=== PATIENT | male | born 1950 | race Two or more races ===

== ENCOUNTER 2022-06-18 18:42 | Emergency (ER) | payer OTHER ==
[~2022-06-18] VITALS: Ht 172.7 cm; Wt 80.7 kg
[2022-06-18] MEDS ORDERED: AMLODIPINE BESYL5 MG PO (19:16)
[2022-06-18] MEDS ORDERED: METOPROLOL SUCC50 MG PO (19:16)
[2022-06-18] MEDS ORDERED: MEMANTINE HCL10 MG PO (19:16)
[2022-06-18] MEDS ORDERED: LEVOTHYROXINE50 MCG PO (19:16)
[2022-06-18] MEDS ORDERED: TAMSULOSIN HCL0.4 MG PO (19:16)
[2022-06-18] MEDS ORDERED: CLOPIDOGREL BIS75 MG PO (19:17)
[2022-06-18] MEDS ORDERED: CLONIDINE HCL0.1 MG PO (19:17)
[2022-06-18] MEDS ORDERED: ATORVASTATIN CA20 MG PO (19:17)
[2022-06-18] MEDS ORDERED: LOSARTAN POTAS100 MG PO (19:17)
[2022-06-18] MEDS ORDERED: FUROSEMIDE40 MG PO (19:17)
== END 2022-06-19 01:42 | disposition home or self-care (01) ==
LOC: ER 18:42
DX: R00.2 Palpitations (principal); E78.00 Pure hypercholesterolemia, unspecified; E03.9 Hypothyroidism, unspecified; I10 Essential (primary) hypertension; N39.0 Urinary tract infection, site not specified; Z20.822 Contact with and (suspected) exposure to COVID-19

== ENCOUNTER 2024-01-15 05:15 | Inpatient (IN) | payer OTHER ==
[2024-01-08 09:35] LABS: HEMATOCRIT 43.4 % (39.0-48.0); HEMOGLOBIN 14.9 g/dL (13-16.00); MEAN CELL VOLUME 89.7 fL (80.0-100.00); MEAN CORPUSCULAR HEMOGLOBIN 30.7 pg (27.00-32.0); MEAN CORPUSCULAR HGB CONC 34.2 g/dl (32.0-36.0); PLATELET COUNT 263 K/uL (150-450); RED BLOOD COUNT 4.84 M/uL (4.00-6.00)
[2024-01-08 09:41] LABS: URINE APPEARANCE Clear; URINE BILIRRUBIN Negative (NEGATIVE); URINE BLOOD Negative; URINE COLOR Yellow; URINE GLUCOSE Negative (NEGATIVE); URINE LEUKOCYTE Negative; URINE NITRATE Negative; URINE PROTEIN Negative (NEGATIVE); URINE UROBILINOGEN 0.2 E.U./dl
[2024-01-08 09:42] LABS: URINE BACTERIA 7.5 uL (0.0-1933); URINE EPITHELIAL CELLS 4.7 uL (0.0-38.8); URINE RBC 3.9 uL (0.0-20.8); URINE WBC 3.8 uL (0.0-23.2)
[2024-01-08 10:33] LABS: INR 0.96; PARTIAL THROMBOPLASTIN TIME 27.5 SECONDS (22.0-34.0); PROTHROMBIN TIME 10.1 SECONDS (9.0-11.5)
[2024-01-08 10:38] LABS: BILIRUBIN TOTAL 0.67 mg/dL (0.3-1.2); CALCIUM 9.6 mg/dL (8.5-10.1); CREATININE SERUM 0.97 mg/dL (0.70-1.30); GFR 75.66; GLOBULINA 3.3 G/DL (2.4-3.5); POTASSIUM 4.17 mEq/L (3.5-5.1); TOTAL PROTEIN 7.3 gm/dL (6.4-8.2)
[~2024-01-15] VITALS: Ht 172.7 cm; Wt 93.0 kg
[~2024-01-15 05:15] MED LIST: AMLODIPINE BESYL5 MG PO; ATORVASTATIN CA20 MG PO; AVAPRO150 MG PO; CARDIZEM60 MG PO; CATAPRES0.3 MG PO; CLONIDINE HCL0.1 MG PO; CLOPIDOGREL BIS75 MG PO; FUROSEMIDE40 MG PO; LEVOTHYROXINE50 MCG PO; LOSARTAN POTAS100 MG PO; MEMANTINE HCL10 MG PO; METOPROLOL SUCC50 MG PO; TAMSULOSIN HCL0.4 MG PO
[2024-01-15] MEDS ORDERED: DEXAMETHASONE SODIUM PHOSPHATE 4 MG/ML VIAL ONE (07:47)
[2024-01-15] MEDS ORDERED: DEXAMETHASONE SODIUM PHOSPHATE 4 MG/ML VIAL IV ONE (08:30)
[2024-01-15] MEDS ORDERED: ONDANSETRON HCL 2 MG/ML VIAL IV PRN (11:00)
[2024-01-15] MEDS ORDERED: ENALAPRILAT DIHYDRATE 1.25 MG/ML VIAL IV PRN (11:00)
[2024-01-15] MEDS ORDERED: TRAMADOL HCL 50 MG TABLET PO PRN (14:30)
[2024-01-15] MEDS ORDERED: ENALAPRILAT DIHYDRATE 1.25 MG/ML VIAL IV ONE ×2 (15:16→15:52)
[2024-01-15] MEDS ORDERED: ACETAMINOPHEN 500 MG GEL..CAP PO SCH (17:00)
[2024-01-15] MEDS ORDERED: CYCLOBENZAPRINE HCL 5 MG TABLET PO SCH (17:00)
[2024-01-15] MEDS ORDERED: DILTIAZEM HCL 60 MG TABLET PO SCH (17:00)
[2024-01-15] MEDS ORDERED: ACETAMINOPHEN 500 MG GEL..CAP PO ONE (17:05)
[2024-01-15] MEDS ORDERED: PANTOPRAZOLE SODIUM 40 MG/VIAL VIAL IV PUSH SCH (21:00)
[2024-01-15] MEDS ORDERED: CLONIDINE HCL 0.1 MG TABLET PO ONE (23:30)
[2024-01-16] MEDS ORDERED: CLONIDINE HCL 0.1 MG TABLET PO ONE (00:32)
[2024-01-16] MEDS ORDERED: ATORVASTATIN CALCIUM 20 MG TABLET PO SCH (09:00)
[2024-01-16] MEDS ORDERED: MEMANTINE HCL 10 MG TABLET PO SCH (09:00)
[2024-01-16] MEDS ORDERED: FUROsemide 40 MG TABLET PO SCH (09:00)
[2024-01-16] MEDS ORDERED: CLONIDINE HCL 0.1 MG TABLET PO SCH ×2 (09:00)
[2024-01-16] MEDS ORDERED: TAMSULOSIN HCL 0.4 MG CAP PO SCH (09:00)
[2024-01-16] MEDS ORDERED: IRBESARTAN 150 MG TABLET PO SCH (09:00)
[2024-01-16] MEDS ORDERED: METOPROLOL SUCCINATE 50 MG TAB.SR.24H PO SCH (09:00)
[2024-01-16] MEDS ORDERED: LEVOTHYROXINE SODIUM 50 MCG TABLET PO SCH (09:00)
[2024-01-16] MEDS ORDERED: FAMOTIDINE40 MG (10:28)
[2024-01-16] MEDS ORDERED: AMLODIPINE BESYL5 MG (10:28)
[2024-01-16] MEDS ORDERED: FLONASE16 GM (10:28)
[2024-01-16] MEDS ORDERED: TADALAFIL10 MG (10:28)
[2024-01-16] MEDS ORDERED: PANTOPRAZOLE SO40 MG (10:29)
== END 2024-01-16 14:14 | disposition home or self-care (01) | DRG 627 ==
LOC: CIR.AMB 05:15 → EDSTATUS 08:45 → SURH 08:45 → SURG 15:20
PROVIDERS: ADMIT Surgery; ATTEND Surgery
PROC: 0GBM0ZZ Excision of Left Superior Parathyroid Gland, Open Approach (ICD-10-PCS; principal; 2024-01-15 07:00)
DX: D35.1 Benign neoplasm of parathyroid gland (principal); Z20.822 Contact with and (suspected) exposure to COVID-19

== ENCOUNTER 2024-02-02 18:02 | Inpatient (IN) | payer OTHER ==
[~2024-02-02] VITALS: Ht 172.7 cm; Wt 93.0 kg
[~2024-02-02 18:02] MED LIST changes: +AMLODIPINE BESYL5 MG; +FAMOTIDINE40 MG; +FLONASE16 GM; +PANTOPRAZOLE SO40 MG; +TADALAFIL10 MG
--- NOTE | 2024-02-02 18:21 | NUR ---
PACIENTE ALERTA Y ORIENTADO X3, REFIERE VENIR DE PARTE DE LA DRA. DILL (ENDOCRINOLOGA) DEBIDO A QUE PRESENTA CERATININA 14.92 Y BUN 97.0. SE ARACELY BP MANUAL 180/100 MMHG. SE REALIZA EKG Y SE UBICA
--- NOTE | 2024-02-02 18:40 | NUR ---
SE ORIENTA A PACIENTE SOBRE [place] MEDICO, REFIERE ENTENDER. SE REALIZAN MUESTRAS DE LABORATORIO BAJO MEDIDAS ASEPTICAS. SE COORDINA SONOGRAMA. PACIENTE MANEJADO POR . PENDIENTE RE-EVALUACION MEDICA.
[2024-02-02 18:58] LABS: HEMATOCRIT 39.8 % (39.0-48.0); HEMOGLOBIN 13.7 g/dL (13-16.00); MEAN CELL VOLUME 91.6 fL (80.0-100.00); MEAN CORPUSCULAR HEMOGLOBIN 31.6 pg (27.00-32.0); MEAN CORPUSCULAR HGB CONC 34.5 g/dl (32.0-36.0); PLATELET COUNT 320 K/uL (150-450); RED BLOOD COUNT 4.35 M/uL (4.00-6.00); RED CELL DISTRIBUTION WIDTH 13.8 % (11.5-14.5)
[2024-02-02 20:08] LABS: ALBUMIN 3.8 gm/dL (3.4-5.0); BILIRUBIN TOTAL 0.56 mg/dL (0.3-1.2); GLOBULINA 3.9 G/DL (2.4-3.5); TOTAL PROTEIN 7.7 gm/dL (6.4-8.2)
[2024-02-02 20:12] LABS: GFR 2.22
[2024-02-02 20:17] LABS: CREATININE SERUM 20.6 mg/dL (0.70-1.30); PHOSPHOROUS 8.9 mg/dL (2.5-4.9); POTASSIUM 6.23 mEq/L (3.5-5.1)
[2024-02-02] MEDS ORDERED: CALCIUM GLUCONATE 100 MG/ML VIAL ONE (20:40)
[2024-02-02] MEDS ORDERED: CALCIUM GLUCONATE 100 MG/ML VIAL IV ONE (20:45)
[2024-02-02] MEDS ORDERED: CITRIC ACID/SODIUM CITRATE 30 ML BLIST.PACK PO SCH (21:25)
[2024-02-02] MEDS ORDERED: Calcium Acetate 667 MG CAP PO SCH (21:26)
[2024-02-02] MEDS ORDERED: CLONAZEPAM 1 MG TABLET PO SCH (21:26)
[2024-02-02] MEDS ORDERED: FINASTERIDE 5 MG TABLET PO SCH (21:27)
[2024-02-02] MEDS ORDERED: DILTIAZEM HCL 60 MG TABLET PO SCH (21:27)
[2024-02-02] MEDS ORDERED: hydrALAZINE HCL 20 MG VIAL IV PRN (21:30)
[2024-02-02] MEDS ORDERED: 0.9 % SODIUM CHLORIDE 1,000 ML IV SCH (21:30)
[2024-02-02] MEDS ORDERED: CLONIDINE HCL 0.1 MG TABLET PO SCH (21:36)
[2024-02-02 21:56] LABS: ABG PH 7.392 (7.35-7.45); ABG PO2 94.3 mmHg (80-100); ABG pCO2 31.3 mmHg (35-45); BASE EXCESS -5.1 mmol/l; BICARBONATE 18.6 mmol/l (23-25); SaO2 97.1 %; Tco2 19.6 mmol/l
[2024-02-02] MEDS ORDERED: SODIUM POLYSTYRENE SULFONATE 30G/8 TSP PO SCH (22:00)
[2024-02-02] MEDS ORDERED: DILTIAZEM HCL 30 MG TABLET PO ONE (22:03)
[2024-02-02] MEDS ORDERED: CLONIDINE HCL 0.1 MG TABLET PO ONE (22:03)
[2024-02-02] MEDS ORDERED: CITRIC ACID/SODIUM CITRATE 30 ML BLIST.PACK PO ONE (22:03)
[2024-02-02 22:43] LABS: allen test SATISFACTORY; o2 21 %; puncture site RADIAL LEFT
[2024-02-02 23:10] LABS: URINE APPEARANCE Clear; URINE BILIRRUBIN Negative (NEGATIVE); URINE BLOOD Negative; URINE COLOR Yellow; URINE GLUCOSE Negative (NEGATIVE); URINE KETONE Negative (NEGATIVE); URINE LEUKOCYTE Trace; URINE NITRATE Negative; URINE PROTEIN Negative (NEGATIVE); URINE UROBILINOGEN 0.2 E.U./dl
[2024-02-02 23:15] LABS: URINE BACTERIA 59.1 uL (0.0-1933); URINE EPITHELIAL CELLS 8.7 uL (0.0-38.8); URINE RBC 6.2 uL (0.0-20.8); URINE WBC 6.3 uL (0.0-23.2)
[2024-02-03] MEDS ORDERED: CLONIDINE HCL 0.1 MG TABLET PO ONE (05:47)
[2024-02-03] MEDS ORDERED: LEVOTHYROXINE SODIUM 50 MCG TABLET PO SCH (06:00)
[2024-02-03 06:27] LABS: HEMATOCRIT 44.8 % (39.0-48.0); HEMOGLOBIN 15.3 g/dL (13-16.00); MEAN CELL VOLUME 91.2 fL (80.0-100.00); MEAN CORPUSCULAR HEMOGLOBIN 31.2 pg (27.00-32.0); MEAN CORPUSCULAR HGB CONC 34.2 g/dl (32.0-36.0); PLATELET COUNT 326 K/uL (150-450); RED BLOOD COUNT 4.91 M/uL (4.00-6.00)
[2024-02-03] MEDS ORDERED: 0.9 % SODIUM CHLORIDE 1,000 ML IV SCH (07:00)
[2024-02-03 07:04] LABS: INR 1.14; PARTIAL THROMBOPLASTIN TIME 29.1 SECONDS (22.0-34.0); PROTHROMBIN TIME 11.9 SECONDS (9.0-11.5)
[2024-02-03 07:15] LABS: ALBUMIN 4.1 gm/dL (3.4-5.0); BILIRUBIN TOTAL 0.72 mg/dL (0.3-1.2); CALCIUM 9.8 mg/dL (8.5-10.1); GFR 7.17; GLOBULINA 4.7 G/DL (2.4-3.5); POTASSIUM 3.9 mEq/L (3.5-5.1); TOTAL PROTEIN 8.8 gm/dL (6.4-8.2)
[2024-02-03] MEDS ORDERED: PANTOPRAZOLE SODIUM 40 MG TABLET.DR PO SCH (07:30)
[2024-02-03 07:54] LABS: CREATININE SERUM 7.47 mg/dL (0.70-1.30)
[2024-02-03] MEDS ORDERED: AMLODIPINE BESYLATE 5 MG TABLET PO SCH (09:00)
[2024-02-03] MEDS ORDERED: TAMSULOSIN HCL 0.4 MG CAP PO SCH (09:00)
[2024-02-03] MEDS ORDERED: METOPROLOL SUCCINATE 50 MG TAB.SR.24H PO SCH (09:00)
[2024-02-03] MEDS ORDERED: SODIUM CHLORIDE 0.45 % 1,000 ML IV SCH (09:00)
[2024-02-04 07:26] LABS: ALBUMIN 3.8 gm/dL (3.4-5.0); BILIRUBIN TOTAL 0.83 mg/dL (0.3-1.2); CALCIUM 9.5 mg/dL (8.5-10.1); CREATININE SERUM 1.18 mg/dL (0.70-1.30); GFR 60.34; POTASSIUM 3.56 mEq/L (3.5-5.1); PROSTATIC SPECIFIC ANTIGEN 2.55 NG/ML (0.010-4.00); TOTAL PROTEIN 7.8 gm/dL (6.4-8.2)
[2024-02-04 07:29] LABS: HEMATOCRIT 41.3 % (39.0-48.0); HEMOGLOBIN 13.9 g/dL (13-16.00); MEAN CELL VOLUME 90.7 fL (80.0-100.00); MEAN CORPUSCULAR HEMOGLOBIN 30.6 pg (27.00-32.0); MEAN CORPUSCULAR HGB CONC 33.7 g/dl (32.0-36.0); PLATELET COUNT 289 K/uL (150-450); RED BLOOD COUNT 4.55 M/uL (4.00-6.00); RED CELL DISTRIBUTION WIDTH 13.7 % (11.5-14.5)
[2024-02-04] MEDS ORDERED: hydrALAZINE HCL 25 MG TABLET PO SCH (09:23)
[2024-02-05 06:22] LABS: HEMATOCRIT 39.6 % (39.0-48.0); HEMOGLOBIN 13.6 g/dL (13-16.00); MEAN CELL VOLUME 89.8 fL (80.0-100.00); MEAN CORPUSCULAR HEMOGLOBIN 30.9 pg (27.00-32.0); MEAN CORPUSCULAR HGB CONC 34.4 g/dl (32.0-36.0); PLATELET COUNT 262 K/uL (150-450); RED BLOOD COUNT 4.41 M/uL (4.00-6.00); RED CELL DISTRIBUTION WIDTH 13.7 % (11.5-14.5)
[2024-02-05 06:43] LABS: ALBUMIN 3.5 gm/dL (3.4-5.0); BILIRUBIN TOTAL 0.74 mg/dL (0.3-1.2); CALCIUM 9.3 mg/dL (8.5-10.1); CREATININE SERUM 0.92 mg/dL (0.70-1.30); GFR 80.42; GLOBULINA 3.4 G/DL (2.4-3.5); MAGNESIUM 1.7 mg/dL (1.8-2.4); POTASSIUM 3.52 mEq/L (3.5-5.1); TOTAL PROTEIN 6.9 gm/dL (6.4-8.2)
[2024-02-05] MEDS ORDERED: Calcium Acetate 667 MG CAP PO SCH (09:10)
[2024-02-05] MEDS ORDERED: METOPROLOL TARTRATE 50 MG TABLET PO SCH (17:00)
[2024-02-05] MEDS ORDERED: hydrALAZINE HCL 50 MG TABLET PO SCH (17:00)
[2024-02-06 07:13] LABS: CALCIUM 9.1 mg/dL (8.5-10.1); CREATININE SERUM 1.03 mg/dL (0.70-1.30); GFR 70.59; POTASSIUM 3.1 mEq/L (3.5-5.1)
[2024-02-06] MEDS ORDERED: MAGNESIUM SULFATE IN WATER 2 GM/50 ML PIGGYBAG IV NR (08:54)
[2024-02-06] MEDS ORDERED: IRBESARTAN 150 MG TABLET PO SCH (09:00)
[2024-02-06] MEDS ORDERED: APIXABAN 5 MG TABLET PO SCH (09:00)
[2024-02-06] MEDS ORDERED: POTASSIUM BICARBONATE/CIT AC 25 MEQ TABLET.EFF PO SCH (09:00)
[2024-02-07 09:02] LABS: HEMOGLOBIN 13.5 g/dL (13-16.00); MEAN CELL VOLUME 91.3 fL (80.0-100.00); MEAN CORPUSCULAR HEMOGLOBIN 30.9 pg (27.00-32.0); MEAN CORPUSCULAR HGB CONC 33.8 g/dl (32.0-36.0); PLATELET COUNT 242 K/uL (150-450); RED BLOOD COUNT 4.38 M/uL (4.00-6.00); RED CELL DISTRIBUTION WIDTH 13.1 % (11.5-14.5)
[2024-02-07 09:28] LABS: ALBUMIN 3.4 gm/dL (3.4-5.0); CALCIUM 8.6 mg/dL (8.5-10.1); CREATININE SERUM 0.92 mg/dL (0.70-1.30); GFR 80.42; MAGNESIUM 2.1 mg/dL (1.8-2.4); POTASSIUM 3.49 mEq/L (3.5-5.1)
[2024-02-07 10:38] LABS: PHOSPHOROUS 1.9 mg/dL (2.5-4.9)
[2024-02-07] MEDS ORDERED: POTASSIUM PHOS,M-BASIC-D-BASIC 15 MM in 0.9 % SODIUM CHLORIDE 250 ML IV NR (11:07)
== END 2024-02-07 21:50 | disposition home or self-care (01) | DRG 684 ==
LOC: ER 18:04 → ICU-2 21:54 → SURH 21:54 → SURG 02-04 15:56 → SURH 02-04 16:19
PROVIDERS: General Practice; Internal Medicine; Internal Medicine Nephrology; ADMIT Internal Medicine; ATTEND Internal Medicine
PROC: BW40ZZZ Ultrasonography of Abdomen (ICD-10-PCS; principal; 2024-02-02)
PROC: B24BZZZ Ultrasonography of Heart with Aorta (ICD-10-PCS; 2024-02-05)
DX: N17.9 Acute kidney failure, unspecified (principal); N13.9 Obstructive and reflux uropathy, unspecified; E87.6 Hypokalemia; R33.8 Other retention of urine; N40.1 Benign prostatic hyperplasia with lower urinary tract symptoms; E03.9 Hypothyroidism, unspecified; I25.10 Atherosclerotic heart disease of native coronary artery without angina pectoris; I11.9 Hypertensive heart disease without heart failure

== ENCOUNTER 2024-05-27 23:47 | Emergency (ER) | payer OTHER ==
[~2024-05-27] VITALS: Ht 172.7 cm; Wt 83.9 kg
[2024-05-28] MEDS ORDERED: ELIQUIS2.5 MG PO (00:24)
[2024-05-28] MEDS ORDERED: LIPITOR20 MG PO (00:25)
[2024-05-28 00:26] VITALS: BP 180/100; O2SAT 98
== END 2024-05-28 | disposition left against medical advice (07) ==
LOC: ER 23:49
DX: Z53.21 Procedure and treatment not carried out due to patient leaving prior to being seen by health care provider (principal)